=== PATIENT | male | born 2000 | race Caucasian/White ===

== ENCOUNTER 2023-03-10 14:30 | Emergency (ER) | payer SELFPAY ==
[2023-03-10 15:01] LABS: Basophils % 0.3 %; Eosinophils # 0.1 10^3/uL (0.0-0.8); Eosinophils % 0.8 %; Hematocrit 46.6 % (37-53); Lymphocytes # 3.1 10^3/uL (0.8-4.8); Lymphocytes % 32.1 %; Mean Corpuscular HGB Conc 34.3 g/dL (30-55); Mean Corpuscular Hemoglobin 30.7 pg (27-33); Mean Corpuscular Volume 89.4 fl (82-101); Mean Platelet Volume 8.6 fL (7.4-10.4); Monocytes # 0.9 10^3/uL (0.2-0.9); Monocytes % 8.9 %; Neutrophils # 5.57 10^3/uL (1.8-7.7); Neutrophils % 57.7 %; Nucleated Red Blood Cells % 0 %; Platelet Count 177 10^3/cmm (157-399); Red Blood Count 5.21 10^6/uL (3.85-5.65); Red Cell Distribution Width 11.9 % (12.1-15.1); White Blood Count 9.66 10^3/uL (3.29-11.43)
[2023-03-10 15:18] LABS: Alanine Aminotransferase 42 U/L (0-41); Albumin Level 4.8 g/dL (3.5-5.2); Alkaline Phosphatase 76 U/L (40-130); Aspartate Amino Transferase 25 U/L (0-40); Blood Urea Nitrogen 11 mg/dL (6-20); Calcium 9.7 mg/dL (8.5-10.5); Carbon Dioxide 31 mmol/L (22-29); Chloride 100 mmol/L (98-107); Globulin 2.7 g/dL (1.3-4.6); Glucose 101 mg/dL (65-115); Osmolality Calculated 292 mOsm/kg (285-295); Sodium 141 mmol/L (136-145); Total Bilirubin 0.5 mg/dL (0.15-1.2); Total Protein 7.5 g/dL (6.6-8.7)
[2023-03-10 15:32] VITALS: BP 138/79; PULSE 64; RESP 18; TEMP 36.7; O2SAT 100; BMI 24.9
--- NOTE | 2023-03-10 16:57 | W.ED.ABDPA2 ---
HPI - Abdominal Pain General: Chief Complaint: Abdominal Pain Stated Complaint: reported lower abd pain Time Seen by Provider: 03/10/23 16:56 Source: patient Mode of arrival: ambulatory History of Present Illness: 23-year-old male presents emergency room complaining of abdominal pain he has had intermittently for the last 2 months complains of pain left lower quadrant worse after he eats on occasion. He has not had any vomiting or diarrhea no hematochezia melena hematemesis coffee-ground emesis no hematuria no dysuria urgency or frequency. He has not noticed anything besides the eating that exacerbates or relieves the discomfort is not constantly there but it did recur again today. He reports having seen his primary care provider there is no significant findings at that time. MD elicited complaint: abdominal pain Onset (ago): month(s) (2) Location: [facility] Severity: mild Associated Symptoms: Reports GI cramping and other; Denies anorexia, belching, bloating, change in bowel habits, change in stool character, chills, coffee ground emesis, constipation, diarrhea, dyspepsia, dysuria, excessive flatus, fever(s), heartburn, hematochezia, hematuria, hematemesis, fecal incontinence, loose stools, melena, nausea, poor appetite, syncope and vomiting Review of Systems Const: Denies: fever(s) or chills Card: Denies: chest pain or syncope Resp: Denies: dyspnea GI: Reports: GI cramping and other; Denies: abdominal pain, nausea, vomiting, hematemesis, coffee ground emesis, heartburn, diarrhea, constipation, bloating, belching, excessive flatus, fecal incontinence, change in bowel habits, change in stool character, hematochezia or melena : Denies: dysuria, urinary frequency, urinary urgency or hematuria Musc: Denies: neck pain or back pain Skin/Breast: Denies: rash Physical Exam Const: COMMON NORMALS: no acute distress GENERAL APPEARANCE: cooperative and comfortable ORIENTATION/CONSCIOUSNESS: Yes awake, Yes oriented to person, Yes oriented to place and Yes oriented to time HENMT: COMMON NORMALS: normocephalic, atraumatic and hearing grossly normal bilaterally HEAD & SCALP: normocephalic and atraumatic Resp: COMMON NORMALS: normal respiratory effort, No retractions, No use of accessory muscles and clear to auscultation bilaterally AUSCULTATION: clear to auscultation bilaterally Cardio: COMMON NORMALS: regular rate, regular rhythm and No murmurs present (Cardio) RATE: regular rate RHYTHM: regular rhythm GI: COMMON NORMALS: Soft to palpation and No hepatosplenomegaly present AUSCULTATION: Yes normoactive bowel sounds PALPATION: Yes Soft to palpation, No Tenderness to palpation present (GI), No Guarding due to palpation present (GI) and Yes No hepatosplenomegaly present Extremity: COMMON NORMALS: normal to inspection, capillary refill normal, no clubbing, cyanosis or edema, no calf tenderness and no pedal edema Neuro: SENSORIUM/ORIENTATION: Yes oriented to person, Yes oriented to place and Yes oriented to time Skin: COMMON NORMALS: no rashes or lesions noted GENERAL SKIN EXAM: no rashes or lesions noted Course Vital Signs: Vital signs: Vital Signs Temperature 98.1 F 03/10/23 15:32 Pulse Rate 64 03/10/23 15:32 Respiratory Rate 18 03/10/23 18:02 Blood Pressure 138/79 03/10/23 15:32 Pulse Oximetry 98 03/10/23 18:02 Oxygen Delivery Me thod Room Air 03/10/23 15:32 MDM - Abdominal Pain Medical Decision Making Exam is unremarkable. Laboratory test reviewed no significant findings. No emergent condition noted at this time discharge patient home follow-up with primary care may need endoscopy as an outpatient. Differential Diagnosis Likely abdominal pain Medical Records I reviewed the patient's medical records. Lab Data I reviewed the patient's lab results. 03/10/23 14:47 03/10/23 14:47 Labs/Radiology: Laboratory Results WBC 9.66 10^3/uL (3.29-11.43) 03/10/23 14:47 RBC 5.21 10^6/uL (3.85-5.65) 03/10/23 14:47 Hgb 16.00 g/dL (11.27-16.99) 03/10/23 14:47 Hct 46.6 % (37-53) 03/10/23 14:47 MCV 89.4 fl (82-101) 03/10/23 14:47 MCH 30.7 pg (27-33) 03/10/23 14:47 MCHC 34.3 g/dL (30-55) 03/10/23 14:47 RDW 11.9 % (12.1-15.1) L 03/10/23 14:47 Plt Count 177 10^3/cmm (157-399) 03/10/23 14:47 MPV 8.6 fL (7.4-10.4) 03/10/23 14:47 Neut % (Auto) 57.7 % 03/10/23 14:47 Lymph % (Auto) 32.1 % 03/10/23 14:47 [place] % (Auto) 8.9 % 03/10/23 14:47 Eos % (Auto) 0.8 % 03/10/23 14:47 Baso % (Auto) 0.3 % 03/10/23 14:47 Neut # (Auto) 5.57 10^3/uL (1.8-7.7) 03/10/23 14:47 Lymph # (Auto) 3.1 10^3/uL (0.8-4.8) 03/10/23 14:47 [place] # (Auto) 0.9 10^3/uL (0.2-0.9) 03/10/23 14:47 Eos # (Auto) 0.1 10^3/uL (0.0-0.8) 03/10/23 14:47 Baso # (Auto) 0.0 10^3/uL (0.0-0.1) 03/10/23 14:47 Nucleated RBC % (auto) 0 % 03/10/23 14:47 Nucleated RBCs # 0.0 /100WBC 03/10/23 14:47 Sodium 141 mmol/L (136-145) 03/10/23 14:47 Potassium 4.0 mmol/L (3.5-5.1) 03/10/23 14:47 Chloride 100 mmol/L (98-107) 03/10/23 14:47 Carbon Dioxide 31 mmol/L (22-29) H 03/10/23 14:47 Anion Gap 14.0 (5-19) 03/10/23 14:47 BUN 11 mg/dL (6-20) 03/10/23 14:47 Creatinine 1.0 mg/dL (0.7-1.2) 03/10/23 14:47 GFR Calculation 91.0 mL/min (90-130) 03/10/23 14:47 Glucose 101 mg/dL (65-115) 03/10/23 14:47 Calculated Osmolality 292 mOsm/kg (285-295) 03/10/23 14:47 Calcium 9.7 mg/dL (8.5-10.5) 03/10/23 14:47 Total Bilirubin 0.5 mg/dL (0.15-1.2) 03/10/23 14:47 AST 25 U/L (0-40) 03/10/23 14:47 ALT 42 U/L (0-41) H 03/10/23 14:47 Alkaline Phosphatase 76 U/L (40-130) 03/10/23 14:47 Total Protein 7.5 g/dL (6.6-8.7) 03/10/23 14:47 Albumin 4.8 g/dL (3.5-5.2) 03/10/23 14:47 Globulin 2.7 g/dL (1.3-4.6) 03/10/23 14:47 Urine Color Yellow (Yellow) 03/10/23 17:19 Urine Appearance Clear (CLEAR) 03/10/23 17:19 Urine pH 7 (5-7) 03/10/23 17:19 Ur Specific [place] 1.015 (1.005-1.030) 03/10/23 17:19 Urine Protein Neg (Negative) 03/10/23 17:19 Urine Glucose (UA) Norm (Normal) 03/10/23 17:19 Urine Ketones Negative (Negative) 03/10/23 17:19 Urine Blood Neg (Negative) 03/10/23 17:19 Urine Nitrate Negative (Negative) 03/10/23 17:19 Urine Bilirubin Neg (Negative) 03/10/23 17:19 Urine Urobilinogen Norm mg/dL (Negative) 03/10/23 17:19 Ur Leukocyte Esterase Negative (Negative) 03/10/23 17:19 All radiology interpretation(s) finalized by discharge Discharge Plan Discharge Patient Disposition: Home Clinical Impression: Chronic abdominal pain Condition: Stable Discharge Orders: Discharge ED (Routine); Ordered 03/10/23 Ordered By: Devendra Del Castillo Referrals: Kanu Ferguson MD [Primary Care Provider] - Discharge Diet: Usual diet Discharge Activity: Resume usual activity Patient Instructions: Abdominal Pain (ED), Opioid Safety, Pain Management Activity Restrictions/Additional Instructions: Thank you for choosing [facility] for your healthcare needs today. Please realize this is an emergency room and that we are providing you with a medical screening exam and this may not be complete and all inclusive of all the testing and or work up that you may need to determine your ailment or severity of your illness. It is very important that you follow up as instructed or that you return to the Emergency Department should you have concerns or if your condition changes or worsens in any way. You are seen today for chronic abdominal pain. Laboratory tests CBC and chemistries. Recommend follow-up. If your symptoms worsen return Coding Level of Care Code ED [employer] for Earl Nicholson
[2023-03-10 17:33] LABS: Add Urine Microscopic? NO; Charge for UA Resulting for Rev
[2023-03-10 17:51] LABS: Bilirubin Urine Neg (Negative); Blood Urine Neg (Negative); Glucose Urine UA Norm (Normal); Ketones Urine Negative (Negative); Leukocyte Esterase Urine Negative (Negative); Nitrate Urine Negative (Negative); Protein Urine Neg (Negative); Specific Gravity, Urine 1.015 (1.005-1.030); Urine Appearance Clear (CLEAR); Urine Color Yellow (Yellow); Urobilinogen Urine Norm (Negative); pH Urine 7 (5-7)
[2023-03-10 18:02] VITALS: RESP 18; O2SAT 98
== END 2023-03-10 18:03 | disposition home or self-care (01) ==
PROVIDERS: Physician Assistant; Emergency Provider Family Medicine; PCP Family Medicine
DX: G89.29 Other chronic pain (principal); R10.31 Right lower quadrant pain
CPT/HCPCS: 36415; 80053; 81003; 85025; 99283